=== PATIENT | male | born 1940 | race Caucasian/White ===

== ENCOUNTER 2016-10-13 08:30 | Day surgery (SDC) | payer MEDICARE, OTHER ==
[~2016-10-13] VITALS: Ht 175.3 cm; Wt 80.0 kg
[~2016-10-13 08:30] MED LIST: 0.9% Sodium Chloride 1,000 ML IV PRN; ASPI-973 PO; CHOL100045 PO; FINA5TAB9 PO; FURO40TA4 PO; KEN25CR EXT; LOVA40TA PO; MULT1CAP33 PO; POTA10TA12 PO; SILD100T PO; Sodium Chloride LOK Flush 10 mL Syringe IV PRN; TAMS0.4C29 PO; fentaNYL-PF 50 mCg/mL 2 mL Inj IVPUSH PRN
[2016-10-13 08:57] VITALS: BP 168/82; PULSE 78; RESP 16; O2SAT 99
[2016-10-13 10:44] VITALS: BP 110/66; PULSE 72; RESP 16; O2SAT 94
[2016-10-13 11:00] VITALS: BP 126/67; PULSE 69; RESP 12; O2SAT 97
[2016-10-13 11:03] VITALS: BP 153/70; PULSE 75; RESP 14; O2SAT 94
--- NOTE | 2016-10-13 11:15 | ENDO ---
[address] [address] ENDOSCOPY PROCEDURE PATIENT: ELIAS ODOM : 1940 MR#: [id number] ADMIT: 10/13/2016 JOB ID: [id number] DATE OF SERVICE: 10/13/2016 PRIMARY PROVIDER: Inocente Lopez MD. PROCEDURE: Colonoscopy with cold forceps polypectomy. INDICATIONS: A 76-year-old male with multiple hyperplastic appearing polyps in the rectosigmoid region. One of these turned out to be adenomatous, and therefore, repeat surveillance colonoscopy was pursued today. EQUIPMENT: NoFlo-H180AL. SEDATION: 1. Versed 4 mg. 2. Fentanyl 75 mcg. COMPLICATIONS: None identified. BOWEL PREPARATION: Fair, adequate exam. PROCEDURE INFORMATION: After the risks and benefits were explained, written and verbal informed consent was obtained. The patient was brought into the endoscopy suite and placed into the left lateral decubitus position. Sedation was achieved using the above-stated medications with the addition of oxygen via nasal cannula. A digital rectal examination was accomplished and, apart from some mild to moderate internal hemorrhoids and arguably prostate hypertrophy, no other pathology was appreciated. The scope was introduced into the rectum and advanced under direct visualization to the level of the cecum, as identified by the appendiceal orifice and ileocecal valve. The scope was slowly withdrawn to carefully examine the mucosa for any defects or lesions. Retroflexed views were accomplished in the rectum. The colon was decompressed. The scope removed from the patient who tolerated the procedure well. FINDINGS: Again, there were several extremely classic hyperplastic appearing polyps in the rectosigmoid region. One of these that appeared slightly more erythematous than the others was sampled for histopathology. This measured about 4-5 mm in size. Otherwise, no polyps or other significant pathology was seen throughout. Retroflexed views disclosed moderate internal hemorrhoids with hypertrophied anal papillae. A significant amount of abdominal pressure was required to overcome scope looping while trying to advance around the splenic flexure. ENDOSCOPIC DIAGNOSES: 1. Hemorrhoids. 2. Rectosigmoid hyperplastic appearing polyps. RECOMMENDATIONS: 1. Await histopathology. 2. Consider repeat colonoscopy in five years' time.
--- NOTE | 2016-10-15 10:10 | PATH ---
SURGICAL PATHOLOGY Attending Physician:Dashawn Kapoor CASE STATUS: Signed Out PATIENT NAME: ELIAS ODOM PID: [id number] : 1940 DATE COLLECTED:10/13/2016 15:57 SPECIMEN: Rectum, Biopsy CLINICAL HISTORY: RECTAL POLYP X1 FINAL DIAGNOSIS: 1.RECTAL POLYP: HYPERPLASTIC POLYP. ICD10 CODE K63.5 GROSS DESCRIPTION: The specimen is received in one formalin filled container labeled with the patient's name, sublabeled "rectal polyp" and consists of a 0.3 x 0.3 x 0.2 CM portion of tissue which is entirely submitted in one cassette. 10/13/2016 DAC MICRO DESCRIPTION: See diagnosis. ICD-9 CODES: CPT CODES: 1: 66684 Electronically Signed Out Placido Gerard MD [facility] Pathology [facility] [address], [place] [address] Technical component performed at [facility], [address] [place] [address] Ave[address], [place], [address]
== END 2016-10-13 23:59 | disposition home or self-care (01) ==
LOC: END 08:30
PROVIDERS: ATTEND Internal Medicine Gastroenterology
DX: Z12.11 Encounter for screening for malignant neoplasm of colon (principal); Z86.010 Personal history of colon polyps; K62.1 Rectal polyp; K64.9 Unspecified hemorrhoids; I10 Essential (primary) hypertension; N40.0 Benign prostatic hyperplasia without lower urinary tract symptoms; E78.5 Hyperlipidemia, unspecified; I83.11 Varicose veins of right lower extremity with inflammation; Z87.891 Personal history of nicotine dependence; Z79.82 Long term (current) use of aspirin
CPT/HCPCS: 45380; 88305; 99153; G0500; J2250; J3010; J7030